=== PATIENT | male | born 1995 | race Caucasian/White ===

== ENCOUNTER 2023-01-18 10:17 | Emergency (ER) | payer BC ==
[2023-01-18] MEDS ORDERED: methylPREDNISolone Sodium Succinate 125 MG/2 ML SDV IM ONE (10:37)
== END 2023-01-18 11:05 | disposition home or self-care (01) ==
LOC: MW.ED 10:17
DX: J30.2 Other seasonal allergic rhinitis (principal)
CPT/HCPCS: 96372; 99283; J2930; 99282

== ENCOUNTER 2025-01-16 13:56 | Emergency (ER) | payer BC ==
[2025-01-16] MEDS: methylPREDNISolone Sodium Succinate 40 MG/1 ML SDV IM ONE (14:25)
== END 2025-01-16 14:32 | disposition home or self-care (01) ==
LOC: MW.ED 13:56
DX: J30.2 Other seasonal allergic rhinitis (principal); Z91.018 Allergy to other foods; Z79.899 Other long term (current) drug therapy
CPT/HCPCS: 96372; 99283; J2919; 99282